=== PATIENT | female | born 1960 | race Caucasian/White ===

== ENCOUNTER 2016-07-01 14:45 | Emergency (ER) | payer MEDICAID ==
[~2016-07-01] VITALS: Ht 154.9 cm; Wt 65.9 kg
[~2016-07-01 14:45] MED LIST: ASP81 PO; ATOR20TA38 PO; CYCL-319 PO; IBUP-1542 PO; ULT50 PO
[2016-07-01 14:48] VITALS: Ht 154.9 cm; Wt 65.9 kg
[2016-07-01] MEDS ORDERED: D-ME473S18 PO (16:30)
[2016-07-01] MEDS ORDERED: BENZ100C70 PO (16:30)
[2016-07-01] MEDS ORDERED: PSEU120T51 PO (16:31)
--- NOTE | 2016-07-01 16:42 | ERD ---
ER Documentation Chief Complaint Date/Time DATE: 07/01/16 TIME: 16:36 Chief Complaint flu like symptoms x 4 days HPI Patient is a 56-year-old female with a past medical history of hyperlipidemia who presents to the emergency department with flulike symptoms 4 days. Patient states 4 days ago she had a sore throat. Patient denies any drooling, trismus, difficulty swallowing, or neck hyperextension. Patient states she is ago, she developed a dry cough. Patient has been taking Robitussin and drinking tea which is helping with her symptoms. Patient also reports some nasal congestion. Patient denies any sinus tenderness. Patient states she has occasional clear rhinorrhea. Patient also reports generalized body aches, particularly in her back. She denies any saddle anesthesia, urinary incontinence, stool incontinence , trauma. Patient has been taking ibuprofen for her body aches which is helping. She denies any chest pain, shortness of breath, diaphoresis, arm pain and jaw pain. Patient denies any nausea, vomiting, loss of appetite, abdominal pain. +Sick contacts. No recent travel. Patient did not receive the flu vaccine this year. ROS All systems reviewed and are negative except as per history of present illness. Medications Home Meds Active Scripts Pseudoephedrine Hcl (Sudafed 12 Hour) 120 Mg Tablet.sa, 120 MG PO BID, #1 BOX Prov:MARIE MANRIQUEZ PA-C 07/01/16 Benzonatate* (Tessalon Perle*) 100 Mg Capsule, 100 MG PO Q8H Y for COUGH, #16 CAP Prov:MARIE MANRIQUEZ PA-C 07/01/16 Dextromethorphan Hb-Promethazine Hcl (Promethazine DM Syrup) 473 Ml Syrup, 5 ML PO Q6 Y for COUGH, #1 BOTTLE Prov:MARIE MANRIQUEZ PA-C 07/01/16 Ibuprofen* (Motrin*) 600 Mg Tab, 600 MG PO Q6H Y for PAIN AND OR ELEVATED TEMP, #20 Prov:AGUILAR STATON 04/05/15 Cyclobenzaprine Hcl* (Cyclobenzaprine Hcl*) 10 Mg Tablet, 10 MG PO TID, #30 TAB Prov:CRYSTAL NUNEZ MD 01/07/15 Ibuprofen* (Motrin*) 600 Mg Tab, 600 MG PO Q6, #20 TAB Prov:CRYSTAL NUNEZ MD 01/07/15 Tramadol HCl (Tramadol HCl) 50 Mg Tab, 50 MG PO Q6H Y for PAIN, #30 TAB Prov:CRYSTAL NUNEZ MD 01/07/15 Atorvastatin Calcium* (Atorvastatin Calcium*) 20 Mg Tab, 20 MG PO HS for 30 Days Prov:PETER GARCIA PERSONAL LINES INSURANCE ADVISOR 08/14/14 Aspirin (Aspirin) 81 Mg Chew, 81 MG PO DAILY for 30 Days Prov:PETER GARCIA PERSONAL LINES INSURANCE ADVISOR 08/14/14 Allergies Allergies: Coded Allergies: acetaminophen (Verified Allergy, Unknown, 08/12/14) codeine (Verified Allergy, Unknown, 08/12/14) hydrocodone (Verified Allergy, Unknown, 08/12/14) PMhx/Soc History of Surgery: Yes (back surgery 2002) Anesthesia Reaction: No Hx Neurological Disorder: No Hx Respiratory Disorders: No Hx Cardiac Disorders: Yes (high cholesterol ) Hx Psychiatric Problems: Yes (depression) Hx Miscellaneous Medical Probl: No Hx Alcohol Use: Yes Hx Substance Use: No Hx Tobacco Use: No FmHx Family History: No diabetes Physical Exam Vitals Vital Signs Date Time Temp Pulse Resp B/P Pulse Ox O2 Delivery O2 Flow Rate FiO2 07/01/16 14:48 99.0 88 20 166/67 99 Physical Exam GENERAL: Well-developed, well-nourished female. Appears in no acute distress. Appears to be in no respiratory distress, no abdominal retractions, no nasal flaring. HEAD: Normocephalic, atraumatic. No deformities or ecchymosis. EYE: Pupils equal, round, and reactive to light. EOMs intact. No conjunctival erythema. No scleral icterus. No eye discharge. ENT: External ear without any masses or tenderness. Auditory canals clear bilaterally. TM visualized bilaterally, non-erythematous, non-bulging. Nasal mucosa pink with no discharge. Oropharynx is pink without any tonsillar erythema or exudates. No uvula deviation. No kissing tonsils. No bilateral mastoid tenderness. NECK: Supple. No lymphadenopathy or thyromegaly. No meningismus.. Trachea midline. LUNG: Clear to auscultation bilaterally. No rhonchi, wheezing, rales or coarse breath sounds. HEART: Regular rate and rhythm. No murmurs, rubs or gallops. BACK: No midline tenderness. Tender to palpation in bilateral thoracic and lumbar paraspinalis muscles. EXTREMITES: Equal pulses bilaterally. No peripheral clubbing, cyanosis or edema. No unilateral leg swelling. NEUROLOGIC: Alert and oriented to person, place and time. Moving all four extremities. 5/5 strength in all extremities. Normal speech. Steady gait. Negative Brudzinski sign. Negative Kernig's sign. SKIN: Normal color. Warm and dry. No rashes or lesions. Procedures/MDM MEDICAL DECISION MAKING: This is a 56-year-old female who presents with sore throat, dry cough, congestion, generalized body aches 4 days. Vital signs were reviewed. Patient was afebrile. Patient was not hypoxic. ENT exam was normal. Lung exam was normal. Abdominal exam was normal. She reported that she did not receive a flu vaccination this year. Given these findings, the patients presentation is most consistent with influenza versus viral syndrome. I have a much lower clinical concern for bacterial infections including pneumonia, meningitis, sinusitis, otitis externa, acute otitis media, strep pharyngitis, epiglottitis or peritonsillar abscess. Low suspicion for the patient requiring IV rehydration therapy at this time given the patient has a normal appetite and is tolerating by mouth fluids. PRESCRIPTIONS: Promethazine cough syrup, Tessalon Perles, Sudafed Patient advised to take ibuprofen for any pain/fever DISCHARGE: At this time, patient is stable for discharge and outpatient management. Supportive therapies such as OTC throat lozenges, salt water gurgles, popsicles and jello discussed. I have instructed the patient to follow-up with his/her primary care physician in 1-2 days. I have instructed the patient to promptly return to the ER for any new or worsening symptoms including increased pain, swelling, fever, nausea, vomiting, weakness or difficulty breathing. The patient and/or family expressed understanding of and agreement with this plan. All questions were answered. Home care instructions were provided. Departure Diagnosis: Primary Impression: Influenza Condition: Stable Patient Instructions: Influenza (Adult) Referrals: COMMUNITY CLINICS YOU HAVE RECEIVED A MEDICAL SCREENING EXAM AND THE RESULTS INDICATE THAT YOU DO NOT HAVE A CONDITION THAT REQUIRES URGENT TREATMENT IN THE EMERGENCY DEPARTMENT. FURTHER EVALUATION AND TREATMENT OF YOUR CONDITION CAN WAIT UNTIL YOU ARE SEEN IN YOUR DOCTORS OFFICE WITHIN THE NEXT 1-2 DAYS. IT IS YOUR RESPONSIBILITY TO MAKE AN APPOINTMENT FOR COLLINS-UP CARE. IF YOU HAVE A PRIMARY DOCTOR --you should call your primary doctor and schedule an appointment IF YOU DO NOT HAVE A PRIMARY DOCTOR YOU CAN CALL OUR PHYSICIAN REFERRAL HOTLINE AT IF YOU CAN NOT AFFORD TO SEE A PHYSICIAN YOU CAN CHOSE FROM THE FOLLOWING [facility] [address] [facility] [address] [facility] [address] [facility] [address] [facility] [address] [facility]. [facility] [address] [facility]. [facility] YOU HAVE RECEIVED A MEDICAL SCREENING EXAM AND THE RESULTS INDICATE THAT YOU DO NOT HAVE A CONDITION THAT REQUIRES URGENT TREATMENT IN THE EMERGENCY DEPARTMENT. FURTHER EVALUATION AND TREATMENT OF YOUR CONDITION CAN WAIT UNTIL YOU ARE SEEN IN YOUR DOCTORS OFFICE WITHIN THE NEXT 1-2 DAYS. IT IS YOUR RESPONSIBILITY TO MAKE AN APPOINTMENT FOR FOLOW-UP CARE. IF YOU HAVE A PRIMARY DOCTOR --you should call your primary doctor and schedule and appointment IF YOU DO NOT HAVE A PRIMARY DOCTOR YOU CAN CALL OUR PHYSICIAN REFERRAL HOTLINE AT . IF YOU CAN NOT AFFORD TO SEE A PHYSICIAN YOU CAN CHOSE FROM THE FOLLOWING [facility] INSTITUTIONS: [facility] [address] [place] [address] [facility] [address] [place] [address] [facility] [address] [place] [address] Additional Instructions: Call your primary care doctor TOMORROW for an appointment during the next 1-2 days.See the doctor sooner or return here if your condition worsens before your appointment time. Drink lots of fluids. Take Ibuprofen for pain and fever. Take Promethazine cough syrup for cough. Take Sudafed for nasal congestion. MARIE MANRIQUEZ PA-C Jul 01, 2016 16:42
== END 2016-07-01 16:34 | disposition home or self-care (01) ==
LOC: E/R 14:45
DX: J11.1 Influenza due to unidentified influenza virus with other respiratory manifestations (principal); Z79.82 Long term (current) use of aspirin
CPT/HCPCS: 99284

== ENCOUNTER 2016-12-20 18:38 | Emergency (ER) | payer SELFPAY ==
[~2016-12-20] VITALS: Ht 160 cm; Wt 61.5 kg
[~2016-12-20 18:38] MED LIST changes: -ASP81 PO; +ASPI81TA3 PO; +BENZ100C70 PO; +D-ME473S18 PO; +PSEU120T51 PO; +TRAM50TA2 PO; -ULT50 PO
[2016-12-20 18:44] VITALS: Ht 160 cm; Wt 61.5 kg
== END 2016-12-20 21:45 | disposition left against medical advice (07) ==
LOC: E/R 18:38
DX: Z53.21 Procedure and treatment not carried out due to patient leaving prior to being seen by health care provider (principal)

== ENCOUNTER 2018-09-20 08:55 | Emergency (ER) | payer MEDICAID ==
[~2018-09-20] VITALS: Ht 157.5 cm; Wt 61.4 kg
[~2018-09-20 08:55] MED LIST changes: +ASPI-831 PO; -ASPI81TA3 PO; +BENZ-6 PO; -BENZ100C70 PO; -CYCL-319 PO; +CYCL10TA7 PO; +PSEU120T12 PO; -PSEU120T51 PO
[2018-09-20 09:04] VITALS: BP 153/80; PULSE 67; RESP 18; Ht 157.5 cm; Wt 61.4 kg
[2018-09-20] MEDS ORDERED: KETOROLAC 30 MG INJ IM STA (09:42)
[2018-09-20] MEDS ORDERED: IBUP-1542 PO (10:59)
[2018-09-20] MEDS ORDERED: TRAM50TA PO (10:59)
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
== END 2018-09-20 11:20 | disposition home or self-care (01) ==
LOC: FTE 08:55
DX: M25.511 Pain in right shoulder (principal); R07.89 Other chest pain; Z79.82 Long term (current) use of aspirin
CPT/HCPCS: 72040; 73030; 96372; J1885; Z7502